=== PATIENT | female | born 1940 | race Caucasian/White ===

== ENCOUNTER 2024-02-26 21:38 | Observation (INO) | payer OTHER, SELFPAY ==
[2024-02-26] VITALS (8 sets, daily range): BP systolic 103–172; BP diastolic 61–81; BMI 20.1; BMI 22.9
[2024-02-26 14:21] LABS: Glucose - Point of Care 97 mg/dl (70-99)
[2024-02-26 15:04] LABS: % Basophils 0.7 % (0-2); % Eosinophils 2.1 % (0-6); % Immature Granulocytes 0.3 % (0-0.5); % Lymphocytes 26.3 % (20.5-51.1); % Neutrophils 63.6 % (42.2-75.2); Absolute Basophils 0.1 10^3/uL (0-0.2); Absolute Eosinophils 0.2 10^3/uL (0-0.7); Absolute Monocytes 0.5 10^3/uL (0.1-0.6); Absolute Neutrophils 4.8 10^3/uL (1.4-6.5); Hematocrit 37.8 % (37.0-47.0); Hemoglobin 12.7 g/dL (12.0-16.0); Mean Corp Hgb Conc. 33.6 g/dL (33.0-37.0); Mean Corpuscular Hgb 30.2 pg (27.0-31.0); Nucleated Red Blood Cells % 0 %; Platelet Count 401 10^3/uL (130-400); Red Cell Dist. Width 12.6 % (11.5-14.5); White Blood Cell Count 7.6 10^3/uL (4.8-10.8)
[2024-02-26 15:15] LABS: ALT (SGPT) 16 U/L (0-35); AST (SGOT) 26 U/L (14-36); Albumin 4.4 g/dl (3.5-5.0); Alkaline Phosphatase 90 U/L (38-126); Blood Urea Nitrogen 11 mg/dl (7-17); Calcium 10.2 mg/dl (8.4-10.2); Carbon Dioxide 27 mmol/L (22-30); Chloride 97 mmol/L (98-107); Glucose 100 mg/dl (70-99); Potassium 4.4 mmol/L (3.5-5.1); Sodium 131 mmol/L (135-145); Total Bilirubin 0.4 mg/dl (0.2-1.3); Total Protein 7.2 g/dl (6.3-8.2); eGFR > 60.00
--- NOTE | 2024-02-26 17:30 | ED.GENMED ---
History of Present Illness
General
Chief Complaint: Numbness
Source: patient
Time Seen by Provider: 02/26/24 17:19
History of Present Illness
History of Present Illness:
83-year-old female presents emergency room complaining left arm weakness. Patient states she woke at around 3 AM there is noted to her left arm to be numb and weak. She was unable to move her fingers. She fell back asleep when she awoke this
morning symptoms had resolved. She was going through her morning when around 10 to 11 AM the symptoms in her left arm returned. She again had weakness and numbness. She felt like her left arm was heavy and she was unable to move it properly.
After about 10 to 15 minutes the symptoms resolved. Patient states she has a history of a stroke or mini stroke about 10 years ago. She was treated at [facility]. She does not recall if she received any medications like thrombolytics. Currently
the patient feels back to her baseline.
Past History
Past History
ED Past Medical History: HTN, Hypercholesterolemia and Other
ED Past Surgical History: Orthopedic
Social History
Tobacco: Non-smoker
Alcohol: Occasional
Personal: (Has a boyfriend)
Living: with family
Phy Exam
Physical Exam
Physical Exam:
General: Awake, Alert, Oriented X3. No acute distress.
Vitals: unremarkable
Head: Atraumatic
Eyes: Pupils equal, EOMI
Throat: Airway intact, no exudates
Neck: Trachea midline
Lungs: Clear and equal b/l
Heart: Regular rate, no murmurs
Abd: Soft, Nontender, No pulsatile mass
Neuro: Cranial nerves intact, muscle strength equal bilaterally, cerebellar exam normal
Skin: Warm, dry, no rash
Extremities: pulses equal b/l, no edema
Course
Orders/Labs/Results
Orders:
Orders
02/26/24 14:21
Electrocardiogram (*1) Urgent
Reason for Study: Fatigue / Weakness
02/26/24 14:22
EKG- Treatment ONCE
02/26/24 14:44
Complete Blood Count/With Diff Urgent
Comprehensive Metabolic Panel Urgent
02/26/24 16:51
Urinalysis Reflex To Culture Urgent
Date Specimen was Collected: 02/26/24
Time Specimen was Collected: 16:50
02/26/24 17:29
CT Head W/o Iv Contrast Urgent
Comment:
Reason For Exam: left arm weakness
02/26/24 19:10
Aspirin Chewable [Low Strength Aspirin] 324 mg PO NOW STA
02/26/24 21:01
Admit/Transfer Patient As Directed
Co-Sign Provider:
Level of Care: Observation services
Assign to:: Telemetry
Physician / Group: thomas oneill
Diagnosis: left arm weakness/heavy concern tia/cva
Reason for Telemetry: CVA/TIA
Date to Stop Telemetry: 02/29/24
Time to Stop Telemetry: 11:00
Code Status As Directed
Resuscitation Status: Full Code
02/26/24 21:02
PRN Pain Medication Management As Directed
May give lesser potent ordered pain med per pt: Yes
preference::
Protocol:: Medication orders for pain may be administered in a
manner that supports deferring to patient preference
when the pt is:
- Requesting an ordered lesser potent pain medication.
Least to most potent pain medications are defined
as: acetaminophen < NSAID < tramadol < opioids
(morphine, oxycodone, hydromorphone).
- Requesting a lesser dose of the same medication IF
ORDERED.
- Requesting a less intrusive route of administration
if both routes are prescribed by the provider (PO <
IV).
02/26/24 22:00
Flush (0.9% Sodium Chloride) [Flush (Nss)] See Dose Instructions IV PER PROTOCOL
02/27/24 00:31
Acetaminophen [Tylenol/Feverall] 650 mg RECTAL Q4HPRN PRN
Acetaminophen [Tylenol] 650 mg PO Q4HPRN PRN
Linaclotide [Linzess] 145 mcg PO DAILYPRN PRN
02/27/24 00:31
Case Management Consult ONCE
Case Management Consult: Discharge Planning
Comment: stroke/tia
MR Brain Without Contrast Routine
Comment:
Reason For Exam: stroke/TIA
OK for patient to be off Cardiac Monitoring for MRI: Yes
Recent pill cam endoscopy?: No
Pacemaker/Defibrillator?: No
Activity As Directed
Activity Level: As Tolerated
NIH Stroke Scale As Directed
Directions: Per protocol
Comment: every shift and with any change in condition or mental status
Neurological Checks As Directed
Frequency: q4h
Additional Instructions:: q4h x 24h upon admission to the floor, then qshift & with any change in condition
and mental status
Patient Education As Directed
Type: Stroke education packet
Comment: provide to patient and family
Pneumatic Compression Sleeves As Directed
Type: Knee high
Vital Signs As Directed
Frequency: Per unit guidelines
Ot Eval And Treat Routine
Pt Eval And Treat Routine
Activity Level: As Tolerated
DX Deep Vein Thrombosis Video Routine
02/27/24 06:00
Levothyroxine [Synthroid] 88 mcg PO DAILY @ 0600
02/27/24 06:45
Complete Blood Count/With Diff IN AM
Comprehensive Metabolic Panel Routine
TSH Reflex To Free T4 IN AM
02/27/24 08:00
Amlodipine [Norvasc] 5 mg PO DAILY
Aspirin Chewable [Low Strength Aspirin] 81 mg PO DAILY
Cholecalciferol (Vitamin D3) [VITAMIN D3 (cholecalciferol)] 125 mcg PO DAILY
Pantoprazole [Protonix] 40 mg PO DAILY
Pravastatin Sodium [Pravachol] 20 mg PO DAILY
02/29/24 11:00
DC Protocol for Telemetry ONCE
Abnormal Lab Results
02/26/24 02/26/24
14:44 16:51
Plt Count 401 H 10^3/uL
(130-400)
Sodium 131 L mmol/L
(135-145)
Chloride 97 L mmol/L
(98-107)
Glucose 100 H mg/dl
(70-99)
Urine Ketones Trace A
(Negative)
02/26/24 14:44
02/26/24 14:44
Vital Signs
Initial and Last Documented VS:
Initial Vital Signs
Temp Pulse Resp BP Pulse Ox
98.0 F 84 20 171/81 98
02/26/24 14:16 02/26/24 14:16 02/26/24 14:16 02/26/24 14:16 02/26/24 14:16
Last Documented Vital Signs
Temp Pulse Resp BP Pulse Ox
97.8 F 71 18 134/61 97
02/27/24 19:00 02/27/24 19:00 02/27/24 19:00 02/27/24 19:00 02/27/24 19:00
MDM/Problems Addressed
Differential Diagnosis Includes:
tia, compression neuropraxia, dz
MDM/Problems Addressed:
Patient complaining of episodes of left arm weakness. First episode occurred while she was sleeping and certainly could be related to sleeping on her arm causing a compression neuropraxia. However she describes a second episode while she was awake
suggesting this could in fact be TIAs. CT here shows no acute abnormality. However patient will require hospitalization for further neurologic workup.
*Radiology
Radiology exam reviewed: radiology read reviewed
*Pulse Oximetry
Patient hypoxic: no
*EKG
Interpreted by ED Provider?: Yes
Heart Rate: 71
Rate: normal
Rhythm: sinus
[place]: normal axis
Interval: normal interval
QRS Pattern: normal QRS
Ischemia: no ischemia
*Sheet Layer Interpretation
Rate: normal
Interpretation: normal
Rhythm: sinus
*Critical Care Note
Total Time (30-74mins, 75-104mins- exclusive of procedures): Not Applicable
Patient Management
Social determinants of health affecting care: Strong social support
ED Attending Note
-
Portions of this chart may have been created with voice recognition software.� Occasional wrong word or��sound alike� substitutions may have occurred due to the inherent limitations of voice recognition software.
Discharge Plan
Departure
Patient Disposition: Admit
Date of Disposition: 02/26/24
Time of Disposition: 19:10
Admit to: Telemetry
Presentation/result/management discussed w/ accepting MD/DO: Hospitalist
Condition: Fair
Discharge Problem:
TIA (transient ischemic attack)
Interventions
Interventions:
*Risk Screen - Suicide Last Done: 02/26/24 22:45
*General Assessment Last Done: 02/26/24 18:59
*Neglect/Abuse Screening Last Done: 02/26/24 14:16
ED- Fall Risk Assessment Last Done: 02/26/24 19:04
*ED COVID-19 Vaccine History Last Done: 02/26/24 22:45
*Nursing Disposition Last Done: 02/26/24 22:37
ED- Neurological Assessment Last Done: 02/26/24 18:03
Discharge Date and Time
Discharge Date/Time: 02/26/24 22:45
[2024-02-26 17:48] LABS: Urine Albumin Negative (Neg - Trace); Urine Bilirubin Negative (Negative); Urine Character Clear (Clear); Urine Color Straw; Urine Glucose Negative (Negative); Urine Ketone Trace (Negative); Urine Leukocyte Negative (Negative); Urine Nitrite Negative (Negative); Urine Occult Blood Negative (Negative); Urine Urobilinogen Negative (Neg - 1+)
[2024-02-26] MEDS: LOW STRENGTH ASPIRIN 324 MG PO (19:16)
--- NOTE | 2024-02-26 19:28 | HPS.HSE ---
Family Physician
-
Family Physician: Kedar Cedillo
Chief Complaint
-
Left arm heaviness, weakness
History of Present Illness
83-year-old female who states she woke up at around 3 AM and noted her left arm to be numb and weak she reports her arm felt heavy this lasted approximately 10 to 15 minutes. She fell back asleep then when she woke this morning the symptoms had
resolved until approximately 10 to 11 AM when they return in her left arm again she reports feeling her left arm was heavy with inability to move it properly lasting approximately 10 to 15 minutes and then the symptoms resolve. She reports taking
an aspirin 325 mg when she had the symptoms occur she also reports a left-sided parietal dull headache from 11 this morning until this evening here in the hospital she did also have 1 bout of nausea around 1:00 this afternoon. She has a history of
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
seen at [facility] was told she had a TIA. She does have history of migraines with ocular aura she reportedly gets once every 2 months. She has a left-sided parietal headache today but no reported migraine or prior aura she has no
neurological deficits on exam she denies headache, blurred vision, fever, chills, chest pain, palpitations, shortness of breath, cough, abdominal pain, nausea, vomiting, diarrhea, urinary symptoms
She has past medical history hypothyroidism, HTN, HLD, CVA/TIA 10 years ago [facility] had left arm weakness with speech difficulty, GERD, constipation
Medical History
Past Medical History
Past Medical History: Reports Other
Additional Past Medical History:
hypothyroidism
HTN
HLD
CVA/TIA 10 years ago [facility]
GERD
constipation
Past Surgical History: Reports Other
Additional Past Surgical History:
Hip replacement 2013
Social History
Tobacco: Non-smoker
Alcohol: Occasional
Drug: None
Personal: Single
Living: Alone
Employment: Retired
Family History
Family History: Other (No family history CVA)
Allergies / Home Medications
Allergies reflects when Allergies were last updated in [employer].
Home Medications with original date entered in [employer]
Allergy/Medication List:
Allergies
Allergy/AdvReac Type Severity Reaction Status Date / Time
No Known Allergies Allergy Verified 02/26/24 14:15
Home Medications
amlodipine 5 mg tablet 5 mg PO DAILY 09/20/19
levothyroxine 88 mcg tablet 88 mcg PO DAILY 09/20/19
pravastatin 20 mg tablet 20 mg PO DAILY 09/20/19
cholecalciferol (vitamin D3) 125 mcg (5,000 unit) tablet (Vitamin D3) 125 mcg PO DAILY 02/26/24
esomeprazole magnesium 20 mg capsule,delayed release (Nexium) 20 mg PO DAILY 02/26/24
linaclotide 145 mcg capsule (Linzess) 145 mcg PO DAILYPRN PRN constipation 02/26/24
Review of Systems
-
History Source: Patient
A 12 point ROS was completed and negative except as noted: Yes
Constitutional: Denies Fever, Fatigue or Chills
EENT: Denies Sore Throat or Runny Nose
Respiratory: Denies Cough, Hemoptysis or Trouble Breathing
Cardiac: Denies Chest Pain, Diaphoresis, Palpitations or Syncope
Abdomen/GI: Denies Abdominal Pain, Nausea, Vomiting, Diarrhea, Constipated, Bloody Stools or Black Stools
: Denies Dysuria, Frequency, Flank Pain, Incontinence, Difficulty Voiding, Urgency or Dark Urine
Musculoskeletal: Reports Other (Reported heaviness to left arm with tingling); Denies Joint Pain or Muscle Stiffness
Skin: Denies Itching or Rash
Neurological: Reports Headache (Left parietal); Denies Dizzy
Endocrine: Reports No Symptoms
Hematologic/Lymphatic: Reports No Symptoms
Psych: Reports Calm
Physical Exam
Vital Signs
Vital Signs
Temp Pulse Resp BP Pulse Ox
98.0 F 63 16 103/66 96
02/26/24 14:16 02/26/24 18:15 02/26/24 18:15 02/26/24 17:00 02/26/24 18:15
Physical Exam
General: Comfortable and Conversant; No Pain, Fever or Chills
HEENT: NormoCephalic, Anicteric, Moist mucous membranes, PERRLA, [place] Conjunctivae and No Ptosis
Respiratory: Clear; No Wheezes, Rales or Rhonchi
Cardiac: S1/S2 and Regular Rhythm; No Murmur, Rub, Gallop or Peripheral Edema
Breast: Deferred by me
GI: Soft, Non Tender, Non Distended, Normal Bowel Sounds and No Hepatosplenomegaly
Rectal: Deferred by Provider
Genito-urinary: Deferred by me
Musculoskeletal: No Clubbing, No Cyanosis and No Edema
Skin: Warm and Dry; No Rash
Neuro: AO x 3, No Motor Deficits, Nonfocal/grossly intact, Cranial Nerves Intact and No Sensory Deficits; No Slurred Speech, Facial Droop, Tremors or Sedated
Psych: Calm
Laboratory Results
-
02/26/24 14:44
02/26/24 14:44
Laboratory Results
Total Bilirubin 0.4 mg/dl (0.2-1.3) 02/26/24 14:44
AST 26 U/L (14-36) 02/26/24 14:44
ALT 16 U/L (0-35) 02/26/24 14:44
Alkaline Phosphatase 90 U/L (38-126) 02/26/24 14:44
Data Reviewed
-
CT Scan: Report Reviewed by me
Lab Data: Labs Reviewed by me
Impression/Plan
-
Impression/plan:
Observation telemetry
#Left upper extremity weakness/numbness concern for TIA/CVA
#CVA/TIA approximately 10 years ago [facility] had left arm weakness with speech difficulty as her symptoms that resolved
-Consult neurology
-Check lipid profile, HgbA1c
-MRI brain
-Aspirin 324 mg given in ER and continue aspirin 81 mg daily, continue pravastatin 20 mg daily
-PT/OT/case management consult
CT head: No acute intracranial abnormalities
Moderate diffuse cortical atrophy with mild nonspecific white matter changes
EKG: NSR 71 bpm, QTc 417 MS otherwise normal
#Hyponatremia
NA 131
-Check TSH with free T4 reflex
#Hypothyroidism
-Check TSH with free T4 reflex
-Continue levothyroxine 88 mcg p.o. daily
#HTN�benign
BP 167/70
Continue amlodipine 5 mg daily
#HLD
-Check lipid profile
-Continue pravastatin 20 mg daily
#GERD
-Continue Nexium 20 mg daily
#Constipation
-Continue Linzess 145 mcg p.o. daily as needed constipation
DVT prophylaxis
SCDs
Full code
--- NOTE | 2024-02-26 21:57 | W.PN.UPDATE ---
Update Note
Progress Note Update
Patient seen in conjunction with FOLDER TAPER OPERATOR. I agree the findings on history and physical as well as assessment and plan.
Briefly, this is a 83-year-old female generally healthy with past medical history of hyperlipidemia, hypertension, GERD and hypothyroid who had a prior episode of TIA several years ago presents to the emergency department with episode of left
forearm numbness. She reported that this occurred around 11 AM and it lasted for about 10 minutes occurring twice in the day. She denied any other focal neurological deficits. She has not been having any other symptoms. She reported for about
several months she has been having some left-sided shoulder and neck/occipital pain. This is also brief and is not associated with any weakness of her extremities.
In the emergency department she was afebrile, blood pressure was 103/61 with pulse of 63. ECG showed a normal sinus rhythm rate of [address] or T wave changes. CT of the head was negative. CBC shows no acute abnormalities. Chemistries
were also notable for a sodium of 131 but otherwise unremarkable.
On my examination NIHSS equals 0 there was no focal neurological deficits. Exam otherwise unremarkable.
Assessment and plan
1. Left arm numbness now resolved - h/o TIA and possible tia versus peripheral nerve irritation. Currently NIHSS = 0.
- admit to telemetry obs
- mri in am
- check lipid panel a1c and tsh
- continue statin, start aspirin 81
- neuro consult
- pt eval
2. Hyponatremia - Mild hyponatremia. No particular h/o fluid losses. Appears euvolemic
- check tsh as above
- orthostatic vs
- check urine sodium and osmolality
Other issues as per FOLDER TAPER OPERATOR note
DVT PPX - lovenox sq
Code status - full code
--- NOTE | 2024-02-26 22:46 | PTCARENOTE ---
Pt arrived to unit @ 2245 able to walk to bed and stand on scale. Ax3, vss, tele box on patient and call rivera within reach. pt with no complaints of pain at the moment
[2024-02-27] VITALS (7 sets, daily range): BP systolic 131–162; BP diastolic 61–70; PULSE 64; BMI 22.9
[2024-02-27] MEDS: SYNTHROID 88 MCG PO (05:15)
[2024-02-27 07:43] LABS: % Basophils 1.2 % (0-2); % Eosinophils 4.1 % (0-6); % Immature Granulocytes 0.4 % (0-0.5); % Lymphocytes 33.2 % (20.5-51.1); % Monocytes 7.2 % (1.7-9.3); % Neutrophils 53.9 % (42.2-75.2); Absolute Basophils 0.1 10^3/uL (0-0.2); Absolute Eosinophils 0.2 10^3/uL (0-0.7); Absolute Lymphocytes 1.7 10^3/uL (1.2-3.4); Absolute Monocytes 0.4 10^3/uL (0.1-0.6); Absolute Neutrophils 2.8 10^3/uL (1.4-6.5); Hematocrit 37.4 % (37.0-47.0); Hemoglobin 12.6 g/dL (12.0-16.0); Mean Corp Hgb Conc. 33.7 g/dL (33.0-37.0); Mean Corpuscular Hgb 30.6 pg (27.0-31.0); Mean Corpuscular Volume 90.8 fL (81.0-99.0); Mean Platelet Volume 9.1 fL (7.4-10.4); Nucleated Red Blood Cells % 0 %; Platelet Count 384 10^3/uL (130-400); Red Blood Cell Count 4.12 10^6/uL (4.20-5.40); Red Cell Dist. Width 12.6 % (11.5-14.5); White Blood Cell Count 5.1 10^3/uL (4.8-10.8)
[2024-02-27 07:55] LABS: ALT (SGPT) 16 U/L (0-35); AST (SGOT) 25 U/L (14-36); Albumin 4.1 g/dl (3.5-5.0); Alkaline Phosphatase 66 U/L (38-126); Blood Urea Nitrogen 9 mg/dl (7-17); Calcium 10.1 mg/dl (8.4-10.2); Carbon Dioxide 27 mmol/L (22-30); Chloride 100 mmol/L (98-107); Estimated Creatinine Clearance 42 ml/min; Glucose 87 mg/dl (70-99); HDL Cholesterol 96 mg/dl; LDL Cholesterol, Calculated 100 mg/dl; Potassium 4.5 mmol/L (3.5-5.1); Sodium 133 mmol/L (135-145); Total Bilirubin 0.6 mg/dl (0.2-1.3); Total Cholesterol 208 mg/dl (50-199); Total Protein 6.8 g/dl (6.3-8.2); Triglyceride 62 mg/dl (10-149); Very Low Density Lipoprotein 12 mg/dl (0-30); eGFR > 60.00
--- NOTE | 2024-02-27 08:24 | W.PN.HOSP.TC ---
Today's Communication/Plan
-
see bold
Assessment / Plan
Assessment / Plan
Gen: NAD, Awake and alert
Eyes: EOMI, PERRLA, no scleral icterus.
Neck: supple.
CV: RRR, +S1/S2, no m/r/g.
Resp: CTAB, no rales, wheezes, or rhonchi.
Abd: +BS, soft, NT, ND
Skin: No rashes.
Neuro: CN 2-12 intact, non-focal.
Psych: Normal mood and affect.
CT head: No acute intracranial abnormalities. Moderate diffuse cortical atrophy with mild nonspecific white matter changes.
Left arm numbness:
-resolved
-h/o TIA and possible TIA versus peripheral nerve irritation
-tele
-MRI brain
-c/s neuro
-cont ASA/statin
Other problems:
Hyponatremia, mild
Hypothyroidism: cont Levoxyl
Essential hypertension: Cont Norvasc
Hyperlipidemia: cont statin
GERD: cont PPI
Constipation: Linzess PRN
FULL/SCDs
Anticipated Discharge: Within 24 hours
Subjective/Interval History
-
Date of Service: February 27, 2024
No new complaints.
Objective Data
-
Labs:
Laboratory Results
02/27/24
06:45
WBC 5.1
Hgb 12.6
Hct 37.4
Plt Count 384
Sodium 133 L
Potassium 4.5
Chloride 100
Carbon Dioxide 27
BUN 9
Creatinine 0.7
Glucose 87
Calcium 10.1
Total Bilirubin 0.6
AST 25
ALT 16
Alkaline Phosphatase 66
Vital Signs:
Vital Signs
Temp Pulse Resp BP Pulse Ox
98.4 F 64 16 161/69 96
02/27/24 08:02 02/27/24 08:02 02/27/24 08:02 02/27/24 08:02 02/27/24 08:02
I&O
02/26/24 02/27/24 02/28/24
06:59 06:59 06:59
Intake Total 480 / 480
Balance 480 / 480
[2024-02-27] MEDS: NORVASC 5 MG PO (08:25)
[2024-02-27] MEDS: PROTONIX 40 MG PO (08:25)
[2024-02-27] MEDS: LOW STRENGTH ASPIRIN 81 MG PO (08:25)
[2024-02-27] MEDS: PRAVACHOL 20 MG PO (08:25)
[2024-02-27] MEDS: VITAMIN D3 (cholecalciferol) 125 MCG PO (08:25)
[2024-02-27 09:37] LABS: TSH Reflex To Free T4 2.85 uIU/ml (0.47-4.68)
[2024-02-27 09:52] LABS: Glycohemoglobin (HgbA1c) 5.1 % (4.0-5.6)
--- NOTE | 2024-02-27 15:43 | CM ---
Met with patient to obtain information for assessment. Patient stated that she lives alone in a one floor apartment with one step to enter. She is independent with her dressing, bathing, ADLs, and personal care. She can cook, clean, do household
chores and laundry. She drives and can get to appointments and do all of her own shopping.
She has DME from a previous back sx, a walker and a cane but she does not use them.
Patient has never had VN services.
She has not been to a SNF.
Patient has a prescription plan and [facility].
Patient's PCP is, Kedar Cedillo.
Patient stated that she feels that she is at baseline and would like to return home when medically stable.
CHARLES letter, signed and reviewed. Now on chart.
Plan: Case management will continue to follow and assist with discharge planning. Home when cleared.
[2024-02-27] MEDS: MELATONIN 3 MG PO (21:40)
[2024-02-28 03:00] VITALS: BP 153/64
[2024-02-28 04:16] VITALS: BMI 22.9
[2024-02-28] MEDS: SYNTHROID 88 MCG PO (05:16)
[2024-02-28 07:00] VITALS: BP 144/70
[2024-02-28] MEDS: PROTONIX 40 MG PO (07:52)
[2024-02-28] MEDS: NORVASC 5 MG PO (07:53)
[2024-02-28] MEDS: PRAVACHOL 20 MG PO (07:57)
[2024-02-28] MEDS: LOW STRENGTH ASPIRIN 81 MG PO (07:57)
[2024-02-28] MEDS: VITAMIN D3 (cholecalciferol) 125 MCG PO (07:57)
--- NOTE | 2024-02-28 08:37 | W.PN.HOSP.TC ---
Addendum entered and electronically signed by Tian Mccoy MD 02/28/24 14:09:
CT angiogram of the head and neck reviewed with Dr. Suazo and he has medically cleared the pt for discharge.
Total time spent on d/c = 33 min. This included today's physical exam, progress note, review of laboratory and diagnostic data, preparation of discharge documents and prescriptions, and discussions about the pt's hospital course and discharge plan
with the patient and other center medical specialist involved in the patient's care.
Original Note:
Today's Communication/Plan
-
see bold
Assessment / Plan
Assessment / Plan
Gen: NAD, Awake and alert
Eyes: EOMI, PERRLA, no scleral icterus.
Neck: supple.
CV: remains RRR, +S1/S2, no m/r/g.
Resp: remains CTAB, no rales, wheezes, or rhonchi.
Abd: +BS, soft, NT, ND
Skin: No rashes.
Neuro: remains CN 2-12 intact, non-focal.
Psych: Normal mood and affect.
CT head: No acute intracranial abnormalities. Moderate diffuse cortical atrophy with mild nonspecific white matter changes.
MRI brain: No MRI evidence for an acute infarct.
Left arm numbness:
-resolved
-MRI brain without CVA
-h/o TIA and this event was likely a TIA
-tele with SR
-c/s neuro
-cont ASA/statin
-check CTA head/neck
Other problems:
Hyponatremia, mild
Hypothyroidism: TSH normal, cont Levoxyl
Essential hypertension: Cont Norvasc
Hyperlipidemia: cont statin
GERD: cont PPI
Constipation: Linzess PRN
FULL/SCDs
Anticipated Discharge: Within 24 hours
Subjective/Interval History
-
Date of Service: February 28, 2024
No new complaints.
Objective Data
-
Vital Signs:
Vital Signs
Temp Pulse Resp BP Pulse Ox
97.8 F 64 18 144/70 98
02/28/24 03:00 02/28/24 07:53 02/28/24 03:00 02/28/24 07:53 02/28/24 03:00
I&O
02/27/24 02/28/24 02/29/24
06:59 06:59 06:59
Intake Total 480 / 480 660 / 660 240 / 240
Balance 480 / 480 660 / 660 240 / 240
--- NOTE | 2024-02-28 08:42 | CON.NEURO ---
Neuro Assessment/Plan
Assessment
Abrupt onset left arm weakness and numbness, recurrent since 2019
With normal MRI of brain
Differential diagnosis includes TIA
Patient was not a candidate for either tenecteplase or intra-arterial thrombectomy due to NIH stroke scale less than 6
Plan
Continue aspirin lifelong
Check CTA head and neck for possible stenosis producing symptomatology
Advance pravastatin from 20 mg daily to 80 mg daily based on elevated LDL of 100, goal less than 70
Medical educational materials to be provided
Therapy evaluations to be performed
Goal of normotension
Goal of normoglycemia
DVT prophylaxis
Will follow as needed
Consultation
Order
Date of Consultation: 02/28/24
Requesting Provider: Hospitalist
Reason for Consult: Left arm numbness
Subjective/Objective
Subjective Data
Date of Service: February 28, 2024
Right-handed
From medical records
09/20/19 11:39
Patient is a 79-year-old female with past medical history of TIA, hypertension, hyperlipidemia, thyroid disorder who presents to ED for evaluation of left hand stiffness and weakness. She states about an hour and half ago she was making meatballs
and noticed that both hands felt stiff and weak with the left being worse. She states after this she became concerned as she has a history of a mini stroke. She states her tongue started to feel numb but she did not have any difficulty speaking. She
states she then developed some lightheadedness and generalized weakness. At that time she presented to ED, she admits to some mild lightheadedness but all other symptoms have resolved. Denies any change in vision.
02/26/24
83-year-old female presents emergency room complaining left arm weakness. Patient states she woke at around 3 AM there is noted to her left arm to be numb and weak. She was unable to move her fingers. She fell back asleep when she awoke this
morning symptoms had resolved. She was going through her morning when around 10 to 11 AM the symptoms in her left arm returned. She again had weakness and numbness. She felt like her left arm was heavy and she was unable to move it properly.
After about 10 to 15 minutes the symptoms resolved. Patient states she has a history of a stroke or mini stroke about 10 years ago. She was treated at [facility]. She does not recall if she received any medications like thrombolytics. Currently
the patient feels back to her baseline.
Left arm heaviness was unable to lift. Duration of weakness was 15 minutes the first time (on 02/26/2024), second was 20 minutes. Patient took aspirin at home prior to leaving for the ED. After the first event years ago, did start aspirin use, then
stopped after 3 weeks.
Patient is a variable history provider.
Has dizziness with change of body position, started PT for this issue which began 6 months.
Objective Data
Vital Signs
Temp Pulse Resp BP Pulse Ox
36.4 C 64 20 144/70 98
02/28/24 07:00 02/28/24 07:53 02/28/24 07:00 02/28/24 07:53 02/28/24 07:00
Lab Results
02/27/24 06:45
02/27/24 06:45
Sodium 133 mmol/L (135-145) L 02/27/24 06:45
Potassium 4.5 mmol/L (3.5-5.1) 02/27/24 06:45
BUN 9 mg/dl (7-17) 02/27/24 06:45
Glucose 87 mg/dl (70-99) 02/27/24 06:45
Calcium 10.1 mg/dl (8.4-10.2) 02/27/24 06:45
LDL Cholesterol, Calc 100 mg/dl 02/27/24 06:45
Patient Allergies
No Known Allergies Allergy (Verified 02/26/24 14:15)
CVA Assessment
Onset of Stroke Symptoms
Onset of symptoms known: Yes
Date of onset of symptoms: 02/26/24
Time of onset of symptoms: 03:00
Time pt last seen normal is known: No
Date last time pt seen normal: 02/25/24
NIH Stroke Score
Level of Consciousness: 0 - Alert
LOC Questions: 0-Answers both correctly
LOC Commands: 0-Performs both correctly
Best Horizontal Gaze: 0-Normal
Visual Moore: 0=Normal, no visual loss
Facial Palsy: 0=Normal, symmetrical
Motor - Right Arm: 0=No drift 10 seconds
Motor - Left Arm: 0=No drift 10 seconds
Motor - Right Le-No drift 5 seconds
Motor - Left Le-No drift 5 seconds
Limb Ataxia: 0-Absent
Sensation: 0-Normal
Best Language: 0-No aphasia
Dysarthria: 0-Normal
Extinction and Inattention: 0-No abnormality
Total Score:: 0
Tenecteplase Contraindications
Inclusion and Exclusion criteria reviewed: Yes
Review of Systems
-
History Source: Patient
All other systems: Reviewed and negative
EENT: Negative Decreased Vision or Swallowing Difficulty
Respiratory: Negative Trouble Breathing
Cardiac: Negative Chest Pain
Abdomen/GI: Negative Incontinence of Stool
Genitourinary: Negative Incontinence
Musculoskeletal: Negative Back Pain or Neck Pain
Neuro: Dizzy; Negative Headache
Physical Exam
-
General: No Apparent Distress and Appears Stated Age
Eyes: OU Absent Papilledema, Round OU, [place] Conjunctivae and No Ptosis
HEENT: Anicteric and Moist Mucous Membranes
Neck: Full Range of Motion
Respiratory: No Dyspnea
Cardiac: No JVD
GI: Non-distended
Skin: Unremarkable
Extremities: No Clubbing, No Cyanosis and No Edema
Psych: Negative Intact Judgement/Insight
Extended Neurological Exam
Mood & Affect: Mood Unremarkable and Affect Unremarkable
Attention Span & Concentration: Awake, Alert, Interactive and No Difficulty with 2 Step Request
Memory: Reduced (For correct holiday order, incorrect recall of timing for prior event of sensory change)
Tremor: Hand Tremor Absent and Head Tremor Absent
Speech: Quality Unremarkable and Quantity Unremarkable
Cranial Nerve II: Left Eye: Pupillary Reactivity Unremarkable, Pupillary Size Unremarkable and Visual Moore Intact
Cranial Nerve II: Right Eye: Pupillary Reactivity Unremarkable, Pupillary Size Unremarkable and Visual Moore Intact
Cranial Nerves III, IV, : Extraocular Movement: Extraocular Movement Full in all Directions
Cranial Nerve VII: Facial Symmetry: Normal Facial Symmetry
Cranial Nerve VIII: Hearing: Unremarkable Hearing to Normal Conversational Volume
Cranial Nerves IX, X: Palate Movement: Palate Elevation Symmetric
Cranial Nerve XI: Shoulder Shrug: Unremarkable
Cranial Nerve XII: Tongue Protusion: Midline
Muscle Strength, Overall: Full Throughout
Muscle Bulk & Tone: Bulk Unremarkable and Tone Unremarkable
Pronator Drift: No Drift in Upper Extremities
Deep Tendon Reflexes: Trace Throughout
Touch Sensation: Unremarkable
Coordination: Wkdaeh-iprj-lbdlla Testing Unremarkable
Babinski Sign: Absent Bilaterally
Data Reviewed
-
CT-A: Ordered
MRI Head: Report Reviewed
Labs: Report Reviewed
Reviewed with: Physician and Patient
Old Records: Summarized
Medications
-
Active Medications
Generic Name Dose Route Start Last Admin
Trade Name Freq PRN Reason Stop Dose Admin
Acetaminophen 650 mg 02/27/24 00:31
Acetaminophen 650 Mg Rectal Suppository RECTAL 03/26/24 00:30
Q4HPRN PRN
POWER, mild pain, or temp >100.4F
Acetaminophen 650 mg 02/27/24 00:31
Acetaminophen 325 Mg Tablet PO 03/26/24 00:30
Q4HPRN PRN
POWER, mild pain, or temp >100.4F
Amlodipine Besylate 5 mg 02/27/24 08:00 02/28/24 07:53
Amlodipine 5 Mg Tablet PO 03/26/24 07:59 5 mg
DAILY TIFF Administration
Aspirin 81 mg 02/27/24 08:00 02/28/24 07:57
Aspirin 81 Mg Chewable Tablet PO 03/26/24 07:59 81 mg
DAILY TIFF Administration
Cholecalciferol 125 mcg 02/27/24 08:00 02/28/24 07:57
Cholecalciferol (Vitamin D3) 125 Mcg Tablet (5,000 Units) PO 03/26/24 07:59 125 mcg
DAILY TIFF Administration
Levothyroxine Sodium 88 mcg 02/27/24 06:00 02/28/24 05:16
Levothyroxine 88 Mcg Tablet PO 03/26/24 05:59 88 mcg
DAILY @ 0600 TIFF Administration
Linaclotide 145 mcg 02/27/24 00:31
Linaclotide 145 Mcg Capsule PO 03/26/24 00:30
DAILYPRN PRN
constipation
Pantoprazole Sodium 40 mg 02/27/24 08:00 02/28/24 07:52
Pantoprazole 40 Mg Delayed Release Tablet PO 03/26/24 07:59 40 mg
DAILY TIFF Administration
Pravastatin Sodium 20 mg 02/27/24 08:00 02/28/24 07:57
Pravastatin 20 Mg Tablet PO 03/26/24 07:59 20 mg
DAILY TIFF Administration
Sodium Chloride 0 flush 02/26/24 22:00
Sodium Chloride 0.9% (Flush) Syringe IV 03/25/24 21:59
PER PROTOCOL TIFF
Home Medications
�Medication �Instructions �Recorded
amlodipine 5 mg tablet 5 mg PO DAILY Blood Pressure 09/20/19
levothyroxine 88 mcg tablet 88 mcg PO DAILY Thyroid 09/20/19
pravastatin 20 mg tablet 20 mg PO DAILY High Cholesterol 09/20/19
cholecalciferol (vitamin D3) 125 125 mcg PO DAILY Supplement 02/26/24
mcg (5,000 unit) tablet (Vitamin
D3)
esomeprazole magnesium 20 mg 20 mg PO DAILY Gastrointestinal 02/26/24
capsule,delayed release (Nexium) Issue
linaclotide 145 mcg capsule 145 mcg PO DAILYPRN PRN 02/26/24
(Linzess) constipation
Past History
Past History
ED Past Medical History: GERD, HTN, Hypercholesterolemia and Other (TIA 2019)
ED Past Surgical History: Orthopedic
Social History
Tobacco: Non-smoker
Alcohol: Occasional
Personal: (Has a boyfriend)
Living: with family
[2024-02-28] MEDS: PRAVACHOL 60 MG PO (10:04)
[2024-02-28 11:10] VITALS: BP 146/71
--- NOTE | 2024-02-28 12:05 | PTOTSP ---
Speech therapy
Presentation: Patient was fully oriented, followed commands, speech was WNL, and participated in the session.
Swallowing Function: SUPPORT SERVICES COORDINATOR observed patient with several bites of cracker and sips of thin liquids in which patient appeared to tolerate as she did not exhibit any overt clinical s/sx of aspiration or difficulty with mastication. Patient denied any
dysphagia complaints.
Recommendations:
1) Continue regular consistency solids and thin liquids
2) Standard aspiration precautions
3) Medications as tolerated
Plan: SUPPORT SERVICES COORDINATOR will sign off at this time as patient is demonstrating her baseline function.
[2024-02-28 12:13] LABS: Ferritin 13.7 ng/ml (11.1-264.0)
[2024-02-28 12:44] LABS: Folate 3.2 ng/ml (2.76-20); Vitamin B12 227 pg/ml (239-931)
--- NOTE | 2024-02-28 14:16 | W.DCSUMMARY ---
Discharge Summary
Discharge Data
Date of Admission: 02/26/24
Date of Discharge: 02/28/24
-
Pending Results: No
Hospital Course
Primary diagnoses:
Transient ischemic attack
Secondary diagnoses:
Hyponatremia, mild
Hypothyroidism
Essential hypertension
Hyperlipidemia
Gastroesophageal reflux disease
Constipation
Consults:
Neurology
Imaging:
CT head: No acute intracranial abnormalities. Moderate diffuse cortical atrophy with mild nonspecific white matter changes.
MRI brain: No MRI evidence for an acute infarct.
CTA head/neck: There is no evidence of intracranial branch occlusion or significant intracranial stenosis. There is moderate diffuse cortical and cerebellar atrophy. There are no focal or acute intracranial abnormalities.
There is a small amount of partially calcific atherosclerotic plaque at the left carotid bifurcation and cavernous portion of the right internal carotid artery without significant stenosis.
Hospital course: 80-year-old female who presented with chief complaints of left arm numbness and heaviness as outlined in H&P done on admission. Patient's symptoms resolved. Imaging above. The patient did not have an acute infarct on MRI of the
brain. CT angiogram of the head and neck without significant arterial stenosis. The patient's symptoms are likely due to transient ischemic attack. Telemetry showed sinus rhythm. The patient was seen consultation by neurology. She will need
lifelong aspirin. Her statin was increased. She was discharged in medically stable condition.
Discharge Plan
-
Patient Disposition: Home (Routine Discharge)
Discharge Diagnosis/Procedures: Transient ischemic attack
Condition: Good
Diet: Low Cholesterol
Activity: As tolerated
Driving Restrictions: As prior to admission
Bathing Restrictions: None
Referrals:
Kedar Cedillo DO [Family Provider] - in less than 1 week
Prescriptions:
New
aspirin 81 mg Tablet,Chewable
81 mg PO DAILY Qty: 0 0RF
pravastatin 20 mg Tablet
80 mg PO DAILY Qty: 30 0RF
Continued
amlodipine 5 MG tablet
5 mg PO DAILY
levothyroxine 88 MCG tablet
88 mcg PO DAILY
esomeprazole magnesium [Nexium] 20 mg Capsule,Delayed Release(Dr/Ec)
20 mg PO DAILY
cholecalciferol (vitamin D3) [Vitamin D3] 125 mcg (5,000 unit) Tablet
125 mcg PO DAILY
Linzess 145 mcg Capsule
145 mcg PO DAILYPRN PRN (Reason: constipation)
Discontinued
pravastatin 20 MG tablet
20 mg PO DAILY
Discharge Orders:
Discharge Patient (As Directed); Ordered 02/28/24
Ordered By: Tian Mccoy
Discharge Date and Time
Print Language: CHINESE
[2024-02-28 14:41] LABS: Erythrocyte Sed Rate 19 mm/hour (0-20)
== END 2024-02-28 15:00 | disposition home or self-care (01) ==
LOC: 3 WEST ACU 21:38
PROVIDERS: Clinical Nurse Specialist Family Health; ADMITTING PHYSICIAN Internal Medicine; ATTENDING PHYSICIAN Internal Medicine; CONSULT PHYSICIAN Psychiatry & Neurology Neurology; EMERGENCY PHYSICIAN Emergency Medicine; FAMILY PHYSICIAN Family Medicine
DX: G45.9 Transient cerebral ischemic attack, unspecified (principal); R20.0 Anesthesia of skin; R53.1 Weakness; E78.00 Pure hypercholesterolemia, unspecified; R51.9 Headache, unspecified; I10 Essential (primary) hypertension; G31.9 Degenerative disease of nervous system, unspecified; I70.90 Unspecified atherosclerosis; E03.9 Hypothyroidism, unspecified; K21.9 Gastro-esophageal reflux disease without esophagitis; K59.00 Constipation, unspecified; E87.1 Hypo-osmolality and hyponatremia; Z79.890 Hormone replacement therapy; Z86.73 Personal history of transient ischemic attack (TIA), and cerebral infarction without residual deficits
CPT/HCPCS: 70450; 70496; 70498; 70551; 80053; 80061; 81003; 82607; 82728; 82746; 82962; 83036; 84443; 85025; 85652; 92610; 93005; 97162; 97166; 99285; G0378; Q9967

== ENCOUNTER 2024-11-09 15:39 | Emergency (ER) | payer OTHER, SELFPAY ==
[2024-11-09 15:44] VITALS: BP 169/83
--- NOTE | 2024-11-09 16:36 | ED.MUSCINJ ---
HPI-Injury
General
Chief Complaint: Musculo-Skeletal Complaint
Source: patient
Exam Limitations: none
Time Seen by Provider: 11/09/24 16:35
Nursing documentation reviewed up to this point in time: agreed with
History of Present Illness-Injury
Initial Injury comments:
84-year-old female with history of HTN, HLD, hypothyroid presents after a fall about 2 hours ago at home. She was carrying groceries in with both hands full when she stumbled and fell landing on her butt but then 'I threw myself over to my left
side' because she did not want to hurt her right leg which had a previous injury. When she threw herself to the side she struck her left shoulder on the step. She struck the left side of her head but denies significant impact. She is not
anticoagulated. She denies headache or neck pain. She denies back pain chest pain or trouble breathing. She has pain in the left shoulder area which is making her a little nauseous.
Past History
Past History
ED Past Medical History: GERD, HTN, Hypercholesterolemia and Other (TIA 2019)
ED Past Surgical History: Orthopedic (Fracture right femur repair)
Social History
Tobacco: Non-smoker
Alcohol: Occasional
Personal: (Has a boyfriend)
Living: with family
Review of Systems
Review of Systems
Allergies reviewed?: Yes
All Other Systems: ROS reviewed and negative except as documented in HPI and ROS
Phy Exam
Physical Exam
Physical Exam:
GENERAL: No acute distress. A&Ox3.
CONSTITUTIONAL: Afebrile.
EYES: clear, conjunctivae normal
ENMT: moist mucus membranes, Pharynx nl
RESPIRATORY: Regular respirations, nonlabored, lungs clear.
CARDIOVASCULAR: Regular rate and rhythm, no murmurs, no rubs.
GI: Soft, nontender, normal BS
MUSCULOSKELETAL: No spinal bony tenderness. Left shoulder with mild swelling, limited range of motion, tender to palpate. Distal neurovascular intact. Rest of extremities are nontender with full range of motion. Moves with ease. Well perfused.
SKIN: Warm, dry, pink
PSYCH: Normal mood and affect. Well kept, interactive and appropriate
NEUROLOGIC: Awake, alert and oriented. No focal neurological deficits
Injury Course
Orders/Labs/Results
Orders:
Orders
11/09/24 15:50
Clavicle, Left Complete CR [CR Clavicle - Left Complete ] Urgent
Comment:
Reason For Exam: pain
11/09/24 16:44
Sling Left-Treatment ONCE
Acetaminophen [Tylenol] 1,000 mg PO NOW STA
MDM/Problems Addressed
MDM/Problems Addressed:
84-year-old female with history of HTN, HLD, hypothyroid presents after a fall about 2 hours ago at home. She was carrying groceries in with both hands full when she stumbled and fell landing on her butt but then 'I threw myself over to my left
side' because she did not want to hurt her right leg which had a previous injury. When she threw herself to the side she struck her left shoulder on the step. She struck the left side of her head but denies significant impact. She is not
anticoagulated. She denies headache or neck pain. She denies back pain chest pain or trouble breathing. She has pain in the left shoulder area which is making her a little nauseous.
X-ray initially read by this examiner. Nondisplaced linear fracture of the distal clavicle on x-ray.
Sling applied. Distal neurovascular intact.
Medicated for pain
Patient out of bed and ambulating well, no other significant injury.
*Pulse Oximetry
SaO2: 98
Oxygen Mode of Delivery: Room air
Patient hypoxic: not evaluated
*Critical Care Note
Total Time (30-74mins, 75-104mins- exclusive of procedures): Not Applicable
ED Attending Note
-
Portions of this chart may have been created with voice recognition software.� Occasional wrong word or��sound alike� substitutions may have occurred due to the inherent limitations of voice recognition software.
Discharge Plan
Departure
Patient Disposition: Home (Routine Discharge)
Date of Disposition: 11/09/24
Time of Disposition: 16:48
Patient with high blood pressure during this ER visit?: No
Condition: Good
Discharge Problem:
Fall from slip, trip, or stumble, Closed fracture of left clavicle
Instructions: Clavicle fracture, Using Cold for Pain
Prescriptions:
No Action
amlodipine 5 MG tablet
5 mg PO DAILY
levothyroxine 88 MCG tablet
88 mcg PO DAILY
esomeprazole magnesium [Nexium] 20 mg Capsule,Delayed Release(Dr/Ec)
20 mg PO DAILY
cholecalciferol (vitamin D3) [Vitamin D3] 125 mcg (5,000 unit) Tablet
125 mcg PO DAILY
Linzess 145 mcg Capsule
145 mcg PO DAILYPRN PRN (Reason: constipation)
aspirin 81 mg Tablet,Chewable
81 mg PO DAILY Qty: 0 0RF
pravastatin 20 mg Tablet
80 mg PO DAILY Qty: 30 0RF
Referrals:
Your orthopedic doctor [Other] - Next open appointment
Activity Restrictions/Additional Instructions:
As we discussed, Tylenol 1000 mg up to 3 times a day as needed for pain.
Cold compress to the area 20 minutes off and on is much as you can today and tomorrow to minimize swelling
Wear the sling when up and around until further instructed by your orthopedic doctor
Move slowly and deliberately as you are at higher risk for falling with your arm in a sling.
Interventions
Interventions:
*Risk Screen - Suicide Last Done: 11/09/24 15:44
*Neglect/Abuse Screening Last Done: 11/09/24 15:44
*Nursing Disposition Last Done: 11/09/24 17:18
ED-Musculoskeletal Assessment Last Done: 11/09/24 17:14
Discharge Date and Time
Print Language: MALAGASY
[2024-11-09] MEDS: TYLENOL 1000 MG PO (17:04)
== END 2024-11-09 17:18 | disposition home or self-care (01) ==
LOC: EMR 15:39
PROVIDERS: EMERGENCY PHYSICIAN Emergency Medicine
DX: S42.035A Nondisplaced fracture of lateral end of left clavicle, initial encounter for closed fracture (principal); W01.0XXA Fall on same level from slipping, tripping and stumbling without subsequent striking against object, initial encounter; E03.9 Hypothyroidism, unspecified; E78.00 Pure hypercholesterolemia, unspecified; I10 Essential (primary) hypertension; Z86.73 Personal history of transient ischemic attack (TIA), and cerebral infarction without residual deficits
CPT/HCPCS: 99283; 73000